=== PATIENT | male | born 1970 | race Caucasian/White ===

== ENCOUNTER 2022-04-02 22:07 | Emergency (ER) | payer OTHER ==
[~2022-04-02] VITALS: Ht 167.6 cm; Wt 91.0 kg
[2022-04-02] MEDS ORDERED: DEXTROSE 50% WATER 50ML SYRINGE IV ONE (23:45)
[2022-04-03 00:09] LABS: HEMATOCRIT. 36.2 % (42.0-52.0); HEMOGLOBIN. 12.7 g/dL (14.0-18.0); MEAN CORPUSCULAR HEMOGLOBIN 35.4 pg (28.0-32.0); MEAN CORPUSCULAR VOLUME 100.9 fL (80.0-94.0); MEAN PLATELET VOLUME 7.8 fl (7.4-10.4); PLATELET 256 x1000/uL (130-400); RED BLOOD CELL COUNT 3.59 mill/uL (4.7-6.1); RED CELL DISTRIBUTION WIDTH 14.3 % (11.6-14.6)
[2022-04-03 00:10] LABS: CHLORIDE 61 mEq/L (98-107)
[2022-04-03 00:13] LABS: INR 1.9; PROTHROMBIN TIME 19.8 sec (9.6-11.0)
[2022-04-03 00:33] LABS: PLATELET ESTIMATE NORMAL
[2022-04-03] MEDS ORDERED: DEXT 5%/0.9% NACL 1,000 ML IV ONE (02:00)
[2022-04-03] MEDS ORDERED: SODIUM POLYSTYRENE SULFONATE 15 G/60 ML BOT PO ONE (02:15)
[2022-04-03 02:45] VITALS: BP 142/98
== END 2022-04-03 03:04 | disposition short-term general hospital (02) ==
LOC: ER 22:07 → CANBEDREQ 04-03 06:08
DX: E11.649 Type 2 diabetes mellitus with hypoglycemia without coma (principal); E87.1 Hypo-osmolality and hyponatremia; E86.0 Dehydration; E87.5 Hyperkalemia; I11.0 Hypertensive heart disease with heart failure; I50.9 Heart failure, unspecified
CPT/HCPCS: 36415; 80053; 80320; 82962; 85025; 96365; 96375; 99291; G0480

== ENCOUNTER → 2024-01-20 | Day surgery (SDC) | payer OTHER ==
[~2024-01-20] VITALS: Ht 167.6 cm; Wt 81.2 kg
[~2024-01-20] MED LIST: BENA40TA91 PO; BUPIVACAINE HCL/PF 0.5% (5MG/ML) 10ML ONE; CEFAZOLIN SODIUM 1000MG/VIAL ONE; FENTANYL CITRATE/PF 50MCG/ML 2ML VIAL IV PRN; FENTANYL CITRATE/PF 50MCG/ML 2ML VIAL ONE; GLYCOPYRROLATE 0.2 MG/ML 2ML VIAL ONE; HYDRALAZINE 20MG/ML VIAL IV PRN; HYDROMORPHONE HCL/PF 2MG/ML INJ IV PRN; LATA2.5D14 EACHEYE; LIDOCAINE HCL/PF 1% 10 MG/ML 5ML VIAL ONE; METF-414 PO; MIDAZOLAM HCL 2 MG/2 ML VIAL ONE; NEOSTIGMINE METHYLSULFATE 1MG/ML 10 ML VIAL ONE; ONDANSETRON HCL 4MG/2ML INJ ONE; PROPOFOL 200MG/20ML VIAL IV ONE; ROCURONIUM BROMIDE 10MG/ML VIAL 5ML IV ONE; SIMV-43 PO; SKIN ADHESIVE 0.7 GM EA TOP ONE; TERA5CAP4 PO; TIMO15DR12 EACHEYE
[2024-01-20] MEDS: SODIUM CHLORIDE 0.9% 1,000 ML IV SCH (06:57)
[2024-01-20] MEDS: HYDROCODONE/ACETAMINOPHEN 5/325MG TABLET PO PRN (09:25)
[2024-01-20] MEDS: ONDANSETRON HCL 4MG/2ML INJ IV NR (09:42)
[2024-01-20 11:07] VITALS: BP 135/90; PULSE 60; RESP 16
[2024-01-20] MEDS: ACETAMINOPHEN WITH CODEINE 300/30MG TABLET PO PRN (11:07)
== END | disposition home or self-care (01) ==
LOC: OR 05:42
PROVIDERS: ATTEND Surgery
DX: K80.10 Calculus of gallbladder with chronic cholecystitis without obstruction (principal); I11.0 Hypertensive heart disease with heart failure; I50.9 Heart failure, unspecified; E11.9 Type 2 diabetes mellitus without complications; E78.00 Pure hypercholesterolemia, unspecified; Z79.84 Long term (current) use of oral hypoglycemic drugs; Z79.899 Other long term (current) drug therapy; Z98.890 Other specified postprocedural states
CPT/HCPCS: 82962; 88304; 47562; J2710; J3010; J3490 ×4; J0690; J2250; J2405; J2704; J7030; J0360